=== PATIENT | female | born 1950 | race Caucasian/White ===

== ENCOUNTER 2024-08-29 09:12 | Outpatient (CLI) | payer MEDICARE, BC, SELFPAY ==
[2024-08-29] VITALS (7 sets, daily range): BP systolic 76–202; BP diastolic 48–135; PULSE 45–80; RESP 18–30; TEMP 36; O2SAT 87–100
--- NOTE | 2024-08-29 06:00 | DI.RAD_ITS ---
Exam(s) XR PAIN CLINIC LUMBAR SP 2V EXAM: XR PAIN CLINIC LUMBAR SP 2V CLINICAL HISTORY: Dx: Lumbar Radiculopathy. TECHNIQUE: Fluoroscopy was provided for the referring physician for guidance with performing pain cl inic injection procedure. COMPARISON: No exams were available for comparison FINDINGS: Please see procedure note for details. Fluoro time: 25.4 seconds RADIATION DOSE DELIVERED: Ka,r=9.56 mGy
--- NOTE | 2024-08-29 09:28 | PDOC.PAIN_ITS ---
Date of service: 08/29/24 Time of Service: 10:11 Pain Managment Procedure Note Procedure Note Procedure Note: Lumbar Transforaminal Epidural Steroid Injection ? Location: RIGHT L4 and L5 ? Pre-procedure Diagnosis: M54.17-Radiculopathy, lumbosacral region M54.16 Radiculopathy, lumbar region ? Post-procedure Diagnosis:? The same as above ? Sedation:? none ? Estimated blood loss:? less than 2 cc ? Surgeon:? 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 ? Procedure Detail:?? The procedure and potential risks were explained to t he patient and informed written consent was obtained. The patient was escorted to the procedure room and placed in the prone position. Pillows were utilized for proper positioning and comfort. Time out was performed in the procedure room with nursing staff confirming the patient's identity, procedure to be performed, allergies, and any blood thinning or anti-platelet medications. The patient's lower back was prepped with ChloraPrep and draped in a sterile fashion. Sterile gloves were used, a face mask was worn, and new single dose vials of all medications were used with the top being swabbed with alcohol and given time to dry prior to withdrawal of medication. A right-sided oblique fluoroscopic view was obtained, with visualization of L4-5. Lidocaine 1% was used to anesthetize the skin. The tip of a 22-gauge, Quincke needle was advanced toward the 6 o'clock position of the superior pedicle at the target level.? It was advanced just under the pedicle to the neural foramen L4-5. Correct needle placement was confirmed through review of the fluoroscopy. Next, following negative aspiration, 1cc's of Omnipaque 240 contrast was injected under live fluoroscopy which showed good flow throughout the epidural space and no evidence of vascular flow or flow into adjacent compartments. Next, following negative aspiration, 40mg Depo-Medrol and 0.5ml of 0.5% bupivacaine was injected. The needle was gently removed.? The procedure was also performed in the same fashion at Right L5-S1.? The patient tolerated the procedure well.? Permanent images saved and recorded. Plan:? Follow up prn PAIN: PRE PROCEDURE 07/25 POST PROCEDURE 0 COMMENT: Could consider basivertebral nerve ablation at the L4 and L5 level For her vertebrogenic back pain. Consider lumbar facet/medial branch blocks L4- 5 Coding Conscious Sedation used for procedure: No CPT Codes: Transforaminal Lumbar/Sacral (includes Fluoro) each add'l - 51190 ([id number] ~G) Transforaminal Lumbar/Sacral (includes fluoro) - 27394 ([id number] ~G) Additional Codes: Date of Service (89002) Date of service: 08/29/24
[2024-08-29] MEDS: Omnipaque 240 MG/ML 50 ML BTL IJ (10:14)
[2024-08-29] MEDS: Bupivacaine 0.5% Pres-Free 10 ML VIAL IJ (10:14)
[2024-08-29] MEDS: Nerve Block Tray 1 EACH MC (10:14)
[2024-08-29] MEDS: methylPREDNISolone ACETATE 40 MG/ML VIAL IJ (10:15)
== END 2024-08-29 09:13 | disposition home or self-care (01) ==
PROVIDERS: PCP Hospitalist; Visit Provider Anesthesiology Pain Medicine
DX: M54.16 Radiculopathy, lumbar region (principal); M54.50 Low back pain, unspecified
CPT/HCPCS: 64483; 64484; 72100; J0665; J1010; Q9967